=== PATIENT | female | born 1995 | race Caucasian/White ===

== ENCOUNTER 2020-05-29 11:52 | Inpatient (IN) | payer MEDICAID, OTHER ==
[2020-05-29] MEDS ORDERED: Water For Irrigation,Sterile 1,000 ML Container IRR PRN (13:07)
[2020-05-29] MEDS ORDERED: Methylergonovine 0.2 MG/1 ML Amp IM PRN (13:07)
[2020-05-29] MEDS ORDERED: Butorphanol 1 MG/ML SDV IVPUSH PRN (13:07)
[2020-05-29] MEDS ORDERED: Nalbuphine 10 MG/1 ML Vial IVPUSH PRN (13:07)
[2020-05-29] MEDS ORDERED: Lidocaine 1% 50 ML MDV INJECT PRN (13:07)
[2020-05-29] MEDS ORDERED: Misoprostol 200 MCG Tab PO PRN (13:07)
[2020-05-29] MEDS ORDERED: Carboprost Tromethamine 250 MCG/1 ML Amp IM PRN (13:07)
[2020-05-29] MEDS ORDERED: Sodium Chloride 0.9% 2.5 ML Syringe FLUSH PRN (13:07)
[2020-05-29] MEDS ORDERED: Tranexamic Acid 1,000 MG in Sodium Chloride 0.9% 100 ML IV PRN (13:07)
[2020-05-29] MEDS ORDERED: Sodium Chloride 0.9% 10 ML Syringe FLUSH PRN (13:07)
[2020-05-29] MEDS ORDERED: Sodium Chloride 0.9% 10 ML SDV IV PRN (13:07)
[2020-05-29] MEDS ORDERED: Oxytocin/0.9 % Sodium Chloride 30 UNIT/500 ML BAG IV SCH ×2 (13:15→14:30)
[2020-05-29] MEDS: Lactated Ringers 1,000 ML IV SCH ×2 (15:15→16:36)
[2020-05-29] MEDS ORDERED: Ropivacaine 0.2% PF 2 MG/ML 20 ML SDV ONE (16:34)
[2020-05-29] MEDS ORDERED: fentaNYL 100 MCG/2 ML SDV ONE (16:37)
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
[2020-05-29] MEDS ORDERED: Acetaminophen 500 MG Tab PO PRN ×2 (20:01)
[2020-05-29] MEDS ORDERED: oxyCODONE 5 MG Tab PO PRN (20:01)
[2020-05-29] MEDS ORDERED: Bisacodyl 10 MG Supp RECTAL PRN (20:01)
[2020-05-29] MEDS ORDERED: Docusate Sodium 100 MG Cap PO PRN (20:01)
[2020-05-29] MEDS ORDERED: Lanolin 100% Cream 7 GM Tube TOP PRN (20:01)
[2020-05-29] MEDS ORDERED: Benzocaine/Menthol 20%-0.5% Spray 78 GM Cannister TOP PRN (20:01)
[2020-05-29] MEDS ORDERED: Ibuprofen 400 MG Tab PO PRN (20:01)
[2020-05-29] MEDS ORDERED: Witch Hazel Medicated Pads 40/Jar TOP PRN (20:01)
--- NOTE | 2020-05-29 20:12 | PCM.OPNOTE ---
- General Post-Op/Procedure Note Date of Surgery/Procedure: 05/29/20 Operative Procedure(s): /1st MLL repaired Findings: Viable male APGARs 8, 9 weight 3300 gm. Spontaneous delivery intact with 3V cord. Pre Op Diagnosis: 37/2 week IUP. SROM Post-Op Diagnosis: Same Anesthesia Technique: Epidural Primary Surgeon: Zuleika Almeida EBL in mLs: 250 Complications: none known Condition: Stable Free Text/Narrative:: Dictation [id number]
--- NOTE | 2020-05-29 21:22 | OR ---
SURGEON: Zuleika Almeida M.D. DATE OF PROCEDURE: 05/29/2020 PREOPERATIVE DIAGNOSES: 1. A 37-2/7 weeks' intrauterine . 2. Spontaneous rupture of membranes. POSTOPERATIVE DIAGNOSES: 1. A 37-2/7 weeks' intrauterine . 2. Spontaneous rupture of membranes. PROCEDURE: Spontaneous vaginal delivery, first-degree midline laceration repaired. PRIMARY SURGEON: Zuleika Almeida MD ANESTHESIA: Epidural. ESTIMATED BLOOD LOSS: 250 mL. COMPLICATIONS: None known. FINDINGS: Viable male. score of 8 at one minute, 9 at five minutes. Weight of 3300 g. Spontaneous delivery, intact placenta, 3-vessel cord. DISPOSITION: to nursery, mom in LDRP. PROCEDURE DETAILS: Jorge is a 24-year-old, G2, P 0-1-0-1, at 37-2/7 weeks' gestational age, who presents today for leakage of fluid since approximately 10:30 a.m. Clear fluid had been noted at that time. On examination, she is found to be ruptured with positive AmniSure. heart tone was category 1. She is group B strep negative. On initial exam, she was found to be 2 cm, 50% effaced, minus 1 station. Therefore, she was observed with no evidence of active labor. Therefore, Pitocin augmentation was initiated. The patient responded nicely to this, became increasingly uncomfortable, underwent regional anesthesia in the form of epidural. Shortly after epidural, she was found to be 4 cm and then shortly after 7 p.m. was beginning to feel increasing pressure. She was found to be complete, 100% effaced, +3 station. I was called for delivery. Upon my arrival, the patient was placed in modified dorsal lithotomy position, was prepped and draped in the usual aseptic manner. She began pushing efforts, pushed readily. Was able to deliver infant's head atraumatically spontaneously, followed by anterior shoulder, posterior shoulder, and remainder of the body without difficulty. The infant's oropharynx and nares were bulb suctioned. was handed off to his mother with attending nursing staff at her side. After a delay, cord was clamped x2 and cut. Cord arterial, cord venous, cord blood sampling was obtained. Light pressure was applied while the placenta was delivered spontaneously intact. Vigorous fundal uterine massage was then applied while 30 units of Pitocin was delivered in 500 mL of IV fluid. Upon inspection of cervix, vaginal sidewall, and perineum, there was found to be a first-degree midline laceration. The patient did have quite a lot of sensation along the perineum at this time. Therefore, this area was prepped with approximately 5 mL of 1% lidocaine and then the laceration was repaired using 3- 0 Vicryl in usual fashion. Hemostasis appeared evident. Sponge, instrument, and needle count was correct. The patient remained in LDRP. Uterus firm. KATE / NATALIE /[id number]
[2020-05-30] MEDS: Ibuprofen 800 MG Tab PO PRN ×2 (09:30→15:33)
--- NOTE | 2020-05-30 11:40 | PCM.PNPP ---
- General Info Date of Service: 05/30/20 Functional Status: Reports: Pain Controlled, Tolerating Diet, Ambulating, Urinating - Review of Systems General: Reports: Fatigue. Denies: Fever, Weakness Pulmonary: Denies: Shortness of Breath Cardiovascular: Denies: Chest Pain, Palpitations, Lightheadedness Gastrointestinal: Denies: Abdominal Pain, Nausea, Vomiting Genitourinary: Denies: Flank Pain Musculoskeletal: Reports: No Symptoms Skin: Reports: No Symptoms Neurological: Reports: No Symptoms Psychiatric: Reports: No Symptoms - General Info Date of Service: 05/30/20 - Patient Data Vital Signs - Most Recent: Last Vital Signs Temp 36.4 C 05/30/20 09:35 Pulse 85 05/30/20 04:12 Resp 15 05/30/20 09:35 BP 124/75 05/30/20 09:35 Pulse Ox 97 05/30/20 09:35 Weight - Most Recent: 77.111 kg Lab Results - Last 24 Hours: Laboratory Results - last 24 hr 05/29/20 05/29/20 05/29/20 Range/Units 12:05 12:30 12:40 WBC (4.0-11.0) K/uL RBC (4.30-5.90) M/uL Hgb (12.0-16.0) g/dL Hct (36.0-46.0) % MCV (80.0-98.0) fL MCH (27.0-32.0) pg MCHC (31.0-37.0) g/dL RDW Std Deviation (28.0-62.0) fl RDW Coeff of Agapito (11.0-15.0) % Plt Count (150-400) K/uL MPV (7.40-12.00) fL Nucleated RBC % /100WBC Nucleated RBCs # K/uL Cord ABG pH (7.18-7.38) Cord ABG Base Excess (-10--2) Cord VBG pH (7.25-7.45) Cord VBG Base Excess (-10--2) Membrane Rupture POSITIVE Urine Opiates Screen NEGATIVE (NEGATIVE) Ur Oxycodone Screen NEGATIVE (NEGATIVE) Urine Methadone Screen NEGATIVE (NEGATIVE) Ur Barbiturates Screen NEGATIVE (NEGATIVE) Ur Phencyclidine Scrn NEGATIVE (NEGATIVE) Ur Amphetamine Screen NEGATIVE (NEGATIVE) U Methamphetamines Scrn NEGATIVE (NEGATIVE) U Benzodiazepines Scrn NEGATIVE (NEGATIVE) U Cocaine Metab Screen NEGATIVE (NEGATIVE) U Marijuana (THC) Screen NEGATIVE (NEGATIVE) SARS-CoV-2 RNA (YESSENIA) NEGATIVE (NEGATIVE) Blood Type Antibody Screen 05/29/20 05/29/20 05/29/20 Range/Units 13:50 13:54 19:42 WBC 15.72 H (4.0-11.0) K/uL RBC 3.55 L (4.30-5.90) M/uL Hgb 10.6 L (12.0-16.0) g/dL Hct 33.3 L (36.0-46.0) % MCV 93.8 (80.0-98.0) fL MCH 29.9 (27.0-32.0) pg MCHC 31.8 (31.0-37.0) g/dL RDW Std Deviation 45.0 (28.0-62.0) fl RDW Coeff of Agapito 13 (11.0-15.0) % Plt Count 486 H (150-400) K/uL MPV 9.50 (7.40-12.00) fL Nucleated RBC % 0.0 /100WBC Nucleated RBCs # 0 K/uL Cord ABG pH 7.266 (7.18-7.38) Cord ABG Base Excess -5 (-10--2) Cord VBG pH 7.281 (7.25-7.45) Cord VBG Base Excess -6 (-10--2) Membrane Rupture Urine Opiates Screen (NEGATIVE) Ur Oxycodone Screen (NEGATIVE) Urine Methadone Screen (NEGATIVE) Ur Barbiturates Screen (NEGATIVE) Ur Phencyclidine Scrn (NEGATIVE) Ur Amphetamine Screen (NEGATIVE) U Methamphetamines Scrn (NEGATIVE) U Benzodiazepines Scrn (NEGATIVE) U Cocaine Metab Screen (NEGATIVE) U Marijuana (THC) Screen (NEGATIVE) SARS-CoV-2 RNA (YESSENIA) (NEGATIVE) Blood Type A POSITIVE Antibody Screen NEGATIVE 05/30/20 Range/Units 05:17 WBC (4.0-11.0) K/uL RBC (4.30-5.90) M/uL Hgb 10.1 L (12.0-16.0) g/dL Hct 31.6 L (36.0-46.0) % MCV (80.0-98.0) fL MCH (27.0-32.0) pg MCHC (31.0-37.0) g/dL RDW Std Deviation (28.0-62.0) fl RDW Coeff of Agapito (11.0-15.0) % Plt Count (150-400) K/uL MPV (7.40-12.00) fL Nucleated RBC % /100WBC Nucleated RBCs # K/uL Cord ABG pH (7.18-7.38) Cord ABG Base Excess (-10--2) Cord VBG pH (7.25-7.45) Cord VBG Base Excess (-10--2) Membrane Rupture Urine Opiates Screen (NEGATIVE) Ur Oxycodone Screen (NEGATIVE) Urine Methadone Screen (NEGATIVE) Ur Barbiturates Screen (NEGATIVE) Ur Phencyclidine Scrn (NEGATIVE) Ur Amphetamine Screen (NEGATIVE) U Methamphetamines Scrn (NEGATIVE) U Benzodiazepines Scrn (NEGATIVE) U Cocaine Metab Screen (NEGATIVE) U Marijuana (THC) Screen (NEGATIVE) SARS-CoV-2 RNA (YESSENIA) (NEGATIVE) Blood Type Antibody Screen Med Orders - Current: Current Medications Acetaminophen (Tylenol Extra Strength) 500 mg PO Q4H PRN PRN Reason: Pain Acetaminophen (Tylenol Extra Strength) 1,000 mg PO Q4H PRN PRN Reason: Pain Benzocaine/Menthol (Dermoplast Pain Relief 20%-0.5% [place]) 78 gm TOP ASDIRECTED PRN PRN Reason: Perineal Comfort Measure Last Admin: 05/30/20 09:30 Dose: 1 spray Documented by: Bisacodyl (Dulcolax) 10 mg RECTAL ONETIME PRN PRN Reason: Constipation Carboprost Tromethamine (Hemabate Ds) 250 mcg IM ASDIRECTED PRN PRN Reason: Post Hemorrhage Docusate Sodium (Colace) 100 mg PO BID PRN PRN Reason: Constipation Emollient Ointment (Lansinoh Hpa) 0 gm TOP ASDIRECTED PRN PRN Reason: Sore Nipples Lactated Ringer's (Ringers, Lactated) 1,000 mls @ 150 mls/hr IV ASDIRECTED BAHMAN Last Infusion: 05/29/20 17:14 Dose: 150 mls/hr Documented by: Oxytocin/Sodium Chloride (Oxytocin 30 Unit/500 Ml-Ns) 30 unit in 500 mls @ 999 mls/hr IV TITRATE BAHMAN Tranexamic Acid 1,000 mg/ (Sodium Chloride) 110 mls @ 660 mls/hr IV ONETIME PRN PRN Reason: Bleeding Oxytocin/Sodium Chloride (Oxytocin 30 Unit/500 Ml-Ns) 30 unit in 500 mls @ 2 mls/hr IV TITRATE BAHMAN; Protocol Last Infusion: 05/29/20 18:14 Dose: 6 munits/min, 6 mls/hr Documented by: Ibuprofen (Motrin) 400 mg PO Q4H PRN PRN Reason: Pain Ibuprofen (Motrin) 800 mg PO Q6H PRN PRN Reason: Pain Last Admin: 05/30/20 09:30 Dose: 800 mg Documented by: Lidocaine HCl (Xylocaine 1%) 50 ml INJECT ONETIME PRN PRN Reason: Laceration repair Last Admin: 05/29/20 19:54 Dose: 50 ml Documented by: Methylergonovine Maleate (Methergine) 0.2 mg IM ASDIRECTED PRN PRN Reason: Post Hemorrhage Nalbuphine HCl (Nubain) 10 mg IVPUSH Q1H PRN PRN Reason: Pain (severe 7-10) Oxycodone HCl (Oxycodone) 5 mg PO Q2H PRN PRN Reason: Pain Sodium Chloride (Saline Flush) 10 ml FLUSH ASDIRECTED PRN PRN Reason: Keep Vein Open Sodium Chloride (Saline Flush) 2.5 ml FLUSH ASDIRECTED PRN PRN Reason: Keep Vein Open Sodium Chloride (Normal Saline) 10 ml IV ASDIRECTED PRN PRN Reason: IV Use Sterile Water (Sterile Water For Irrigation) 1,000 ml IRR ASDIRECTED PRN PRN Reason: delivery Last Admin: 05/29/20 20:14 Dose: 1,000 ml Documented by: Melissa Asher) 1 pad TOP ASDIRECTED PRN PRN Reason: comfort care Discontinued Medications Butorphanol Tartrate (Stadol) 1 mg IVPUSH Q1H PRN PRN Reason: Pain Fentanyl (Sublimaze) Confirm Administered Dose 100 mcg .ROUTE .STK-MED ONE Stop: 05/29/20 16:38 Misoprostol (Cytotec) 200 mcg PO ONETIME PRN PRN Reason: Post Hemorrhage Ropivacaine (Naropin 0.2%) Confirm Administered Dose 20 ml .ROUTE .Flipter-Corral Labs ONE Stop: 05/29/20 16:35 - Interaction Support Person: Mother - Recovery Exam Fundal Tone: Firm Fundal Level: At Umbilicus Fundal Placement: Midline Lochia Amount: Scant Lochia Color: Rubra/Red Perineum Description: Intact, Minimal Bruising/Swelling Episiotomy/Laceration: Approximated Bladder Status: Voiding - Exam General: Alert, Oriented Lungs: Normal Respiratory Effort Cardiovascular: Regular Rate, Regular Rhythm GI/Abdominal Exam: Normal Bowel Sounds, Soft Extremities: Pedal Edema (trace). No: Shawn's Sign Skin: Warm, Dry, Intact Neurological: No New Focal Deficit Psy/Mental Status: Alert, Normal Affect, Normal Mood - Problem List & Annotations (1) Vaginal delivery SNOMED Code(s): 603385129 Code(s): O80 - ENCOUNTER FOR FULL-TERM UNCOMPLICATED DELIVERY Status: Acute Current Visit: Yes - Problem List Review Problem List Initiated/Reviewed/Updated: Yes - My Orders Last 24 Hours: My Active Orders 05/29/20 11:56 Patient Status [ADT] Routine Resuscitation Status Routine 05/29/20 13:07 Patient Status [ADT] Routine Notify Provider [RC] PRN Carboprost Tromethamine [Hemabate DS] 250 mcg IM ASDIRECTED PRN Lidocaine 1% [Xylocaine 1%] 50 ml INJECT ONETIME PRN Methylergonovine [Methergine] 0.2 mg IM ASDIRECTED PRN Nalbuphine [Nubain] 10 mg IVPUSH Q1H PRN Sodium Chloride 0.9% [Normal Saline] 10 ml IV ASDIRECTED PRN Sodium Chloride 0.9% [Saline Flush] 10 ml FLUSH ASDIRECTED PRN Sodium Chloride 0.9% [Saline Flush] 2.5 ml FLUSH ASDIRECTED PRN Tranexamic Acid [Cyklokapron] 1,000 mg Sodium Chloride 0.9% [Normal Saline] 100 ml IV ONETIME Water For Irrigation,Sterile [Sterile Water for Irrigation] 1,000 ml IRR ASDIRECTED PRN Peripheral IV Insertion Adult [OM.PC] Routine 05/29/20 13:15 Lactated Ringers [Ringers, Lactated] 1,000 ml IV ASDIRECTED Oxytocin/0.9 % Sodium Chloride [Oxytocin 30 Unit/500 ML-NS] 30 unit in 500 ml IV TITRATE 05/29/20 13:50 RPR (SYPHILIS SERO) W/ RFLX [REF] Routine 05/29/20 14:30 Oxytocin/0.9 % Sodium Chloride [Oxytocin 30 Unit/500 ML-NS] 30 unit in 500 ml IV TITRATE 05/29/20 Dinner Regular Diet [DIET] 05/29/20 20:01 Patient Status [ADT] Routine May Shower [RC] ASDIRECTED Notify Provider Vital Signs [RC] ASDIRECTED Up ad Maggie [RC] ASDIRECTED Vital Signs [RC] PER UNIT ROUTINE Acetaminophen [Tylenol Extra Strength] 1,000 mg PO Q4H PRN Acetaminophen [Tylenol Extra Strength] 500 mg PO Q4H PRN Benzocaine/Menthol [Dermoplast Pain Relief 20%-0.5% [place]] 78 gm TOP ASDIRECTED PRN Docusate Sodium [Colace] 100 mg PO BID PRN Ibuprofen [Motrin] 400 mg PO Q4H PRN Ibuprofen [Motrin] 800 mg PO Q6H PRN Lanolin [Lansinoh HPA] See Dose Instructions TOP ASDIRECTED PRN bisacodyL [Dulcolax] 10 mg RECTAL ONETIME PRN oxyCODONE 5 mg PO Q2H PRN witch [place]o [Tucks] 1 pad TOP ASDIRECTED PRN Assess Lochia [WOMSER] Per Unit Routine Assess Uterine Involution [WOMSER] Per Unit Routine Peripheral IV Discontinue [OM.PC] Routine 05/29/20 20:02 Ice Therapy [OM.PC] Per Unit Routine Perineal Care [OM.PC] Per Unit Routine Sitz Bath [OM.PC] Per Unit Routine 05/29/20 20:03 Cooling Warming Measures [RC] ASDIRECTED 05/30/20 11:37 Ready for Discharge [RC] PER UNIT ROUTINE - Assessment Assessment:: PPD 1 status post - Plan Plan:: Patient is doing well overal. VS and labs reassuring. is going well. She would like to go home later today. Discharge instructions reviewed. Follow up at [facility] 4 weeks. Discharge this evening.
--- NOTE | 2020-05-30 12:54 | PCM48HPAN ---
Post Anesthesia Note - EVALUATION WITHIN 48HRS OF ANESTHETIC Vital Signs in Normal Range: Yes Patient Participated in Evaluation: Yes Respiratory Function Stable: Yes Airway Patent: Yes Cardiovascular Function Stable: Yes Hydration Status Stable: Yes Pain Control Satisfactory: Yes Nausea and Vomiting Control Satisfactory: Yes Mental Status Recovered: Yes Vital Signs: Last Vital Signs Temp 36.4 C 05/30/20 09:35 Pulse 85 05/30/20 04:12 Resp 15 05/30/20 09:35 BP 124/75 05/30/20 09:35 Pulse Ox 97 05/30/20 09:35 - COMMENTS/OBSERVATIONS Free Text/Narrative:: Doing well. No problems noted.
[2020-05-30 19:23] VITALS: BP 114/64; PULSE 92
== END 2020-05-30 21:57 | disposition home or self-care (01) | DRG 807 ==
LOC: MW.OB 11:52 → MW.OBCHECK 11:52 → MW.OB 13:07 → MW.OBCHECK 13:07 → OBSVTOIN 19:42 → MW.OB 22:41
PROVIDERS: ADMIT Obstetrics & Gynecology; ATTEND Obstetrics & Gynecology
PROC: 10E0XZZ Delivery of Products of Conception, External Approach (ICD-10-PCS; principal; 2020-05-29)
PROC: 0HQ9XZZ Repair Perineum Skin, External Approach (ICD-10-PCS; 2020-05-29)
PROC: 3E0R3BZ Introduction of Anesthetic Agent into Spinal Canal, Percutaneous Approach (ICD-10-PCS; 2020-05-29)
PROC: 00HU33Z Insertion of Infusion Device into Spinal Canal, Percutaneous Approach (ICD-10-PCS; 2020-05-29)
DX: O70.0 First degree perineal laceration during delivery (principal); Z37.0 Single live birth; Z3A.37 37 weeks gestation of pregnancy; Z20.828 Contact with and (suspected) exposure to other viral communicable diseases
CPT/HCPCS: 36415; 51702; 59025; 59409; 80305-QW; 82803; 84112; 85014; 85018; 85027; 86592; 86850; 86900; 86901; A9270-GY; J2001; J2590; J2795; J3010; J7120; U0002

== ENCOUNTER 2021-04-21 11:45 | Emergency (ER) | payer MEDICAID, OTHER ==
[2021-04-21] MEDS ORDERED: Ketorolac 30 MG/ML SDV IVPUSH ONE (12:38)
[2021-04-21] MEDS ORDERED: Ondansetron 4 MG/2 ML SDV IVPUSH ONE (12:38)
[2021-04-21 12:40] LABS: BLOOD UREA NITROGEN,BUN 4 mg/dL (7.0-18.0); CARBON DIOXIDE,CO2 23.6 mmol/L (21.0-32.0); CHLORIDE,CL 104 mmol/L (98-107); GLUCOSE RANDOM 107 mg/dL (74-106); POTASSIUM,K 3.7 mmol/L (3.5-5.1); SODIUM,NA 141 mmol/L (136-145)
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
[2021-04-21] MEDS ORDERED: Iopamidol 755 MG/ML 500 ML Multipack Bottle IVPUSH STA (13:03)
--- NOTE | 2021-04-21 13:55 | CT ---
Indication: Right lower quadrant pain, concern for appendicitis Technique: Contrast enhanced axial CT imaging through the abdomen and pelvis. 100 mL Isovue 370 contrast agent was administered intravenously. Sagittal and coronal reconstructions are provided. Comparison: None Findings: No abnormalities are demonstrated relating to the liver, gallbladder, spleen, pancreas, adrenal glands, and kidneys. The portal vein is patent. The abdominal aorta is normal in caliber. There is no abdominal or pelvic lymphadenopathy. The stomach and duodenum are unremarkable. There is no small bowel wall thickening or abnormal distention. The appendix is noninflamed. There is no colonic wall thickening or mesenteric edema. Intrauterine device is noted. The right short arm of the IUD is imbedded in the myometrium, with its distal end protruding at least 5 mm past the serosal margin into the vesicouterine space. There is no appreciable pelvic free fluid. The ovaries and urinary bladder are grossly unremarkable. The osseous structures are unremarkable. The included lung bases are clear. Impression: 1. Malpositioned IUD with the right short arm imbedded into the myometrium and protruding past the serosa into the vesicouterine space. 2. Normal appendix. 3. Findings were called to WILLIAN Leiva. Please note that all CT scans at this facility use dose modulation, iterative reconstruction, and/or weight-based dosing when appropriate to reduce radiation dose to as low as reasonably achievable. Dictated by Polly Dominguez MD @ 04/21/2021 1:54:19 PM (Electronically Signed)
[2021-04-21] MEDS ORDERED: Acetaminophen/HYDROcodone 325-5 MG Tab PO ONE (15:11)
[2021-04-21 15:18] VITALS: BP 110/74; PULSE 89
== END 2021-04-21 15:23 | disposition home or self-care (01) ==
LOC: MW.ED 11:45
DX: T83.32XA Displacement of intrauterine contraceptive device, initial encounter (principal); Z20.822 Contact with and (suspected) exposure to COVID-19
CPT/HCPCS: 36415; 74177; 80053; 81001; 81025; 85025; 87086; 87635; 96374; 96375; 99284; A9270; J1885; J2405; Q9967; U0002

== ENCOUNTER 2024-02-03 15:39 | Emergency (ER) | payer MEDICAID, OTHER ==
[2024-02-03 16:22] LABS: BASOPHILS ABSOLUTE AUTO 0.03 K/uL (0.00-0.20); BASOPHILS PERCENT AUTO 0.3 % (0.0-1.0); HEMATOCRIT 34.1 % (37.0-47.0); HEMOGLOBIN 11.8 g/dL (12.0-16.0); IMMATURE GRAN ABSOLUTE AUTO 0.04 K/uL (0.00-0.05); IMMATURE GRAN PERCENT AUTO 0.4 % (0.0-0.4); LYMPHOCYTES ABSOLUTE AUTO 2.83 K/uL (1.00-4.80); LYMPHOCYTES PERCENT AUTO 26.9 % (24.0-44.0); MEAN CORPUSCULAR HEMOGLOBIN 31.2 pg (28.0-32.0); MEAN CORPUSCULAR HGB CONC 34.6 g/dL (32.0-36.0); MEAN CORPUSCULAR VOLUME 90.2 fL (83.0-99.0); MEAN PLATELET VOLUME 8.8 fL (9.4-12.3); MONOCYTES ABSOLUTE AUTO 0.62 K/uL (0.00-0.80); MONOCYTES PERCENT AUTO 5.9 % (0.0-8.0); NEUTROPHILS ABSOLUTE AUTO 6.89 K/uL (1.80-7.70); NEUTROPHILS PERCENT AUTO 65.5 % (41.0-71.0); PLATELET COUNT,PLT 358 K/uL (150-400); RED BLOOD CELL COUNT 3.78 M/uL (4.10-5.30); WHITE BLOOD CELL COUNT,WBC 10.51 K/uL (3.9-11.3)
[2024-02-03 16:42] LABS: BILIRUBIN,URINE NEGATIVE (NEGATIVE); COLOR,URINE YELLOW; GLUCOSE,URINE NEGATIVE (NEGATIVE); KETONES,URINE NEGATIVE (NEGATIVE); LEUKOCYTE ESTERASE,URINE TRACE (NEGATIVE); NITRITE,URINE POSITIVE (NEGATIVE); OCCULT BLOOD,URINE NEGATIVE (NEGATIVE); PH,URINE 6.5 (5.0-8.0); PROTEIN,URINE NEGATIVE (NEGATIVE); UROBILINOGEN,URINE 0.2 EU/dL (<2.0)
[2024-02-03 16:46] LABS: APPEARANCE,URINE SLT CLOUDY
[2024-02-03 16:50] LABS: A/G RATIO 1.1 (0.9-1.6); ALBUMIN 3.6 g/dL (3.4-5.0); BILIRUBIN TOTAL 0.4 mg/dL (0.2-1.0); CALCIUM 9.2 mg/dL (8.5-10.1); CARBON DIOXIDE,CO2 25.8 mmol/L (21.0-32.0); CREATININE 0.6 mg/dL (0.6-1.0); EST CRCL DRUG DOSING (CG) 105.34 mL/min; MAGNESIUM 1.6 mg/dL (1.8-2.4); POTASSIUM,K 3.4 mmol/L (3.5-5.1); PROTEIN TOTAL,TP 6.8 g/dL (6.4-8.2)
[2024-02-03] MEDS: Sodium Chloride 0.9% 1,000 ML IV ONE (16:50)
[2024-02-03] MEDS: Ketorolac 30 MG/ML SDV IVPUSH ONE (16:51)
[2024-02-03] MEDS: Acetaminophen 500 MG Tab PO ONE (16:51)
[2024-02-03 16:57] VITALS: BP 123/65; PULSE 92
[2024-02-03 16:58] LABS: EPITHELIAL CELLS,URINE FEW (NONE-FEW); RBC,URINE 0-1 (0-2/HPF)
[2024-02-03 16:59] LABS: BACTERIA,URINE MANY (NEGATIVE)
[2024-02-03] MEDS: Acetaminophen 500 MG Tab ONE (16:59)
[2024-02-03 17:36] LABS: CORONAVIRUS COVID-19 NAA NEGATIVE (NEGATIVE); INFLUENZA A NAA NEGATIVE (NEGATIVE); INFLUENZA B NAA NEGATIVE (NEGATIVE); RESPIRATORY SYNCYTIAL VIR NAA NEGATIVE (NEGATIVE)
[2024-02-03] MEDS: Cephalexin 500 MG Cap PO ONE (18:54)
== END 2024-02-03 19:02 | disposition left against medical advice (07) ==
LOC: MW.ED 15:39
DX: O23.41 Unspecified infection of urinary tract in pregnancy, first trimester (principal); Z3A.01 Less than 8 weeks gestation of pregnancy; Z75.8 Other problems related to medical facilities and other health care
CPT/HCPCS: 0241U; 36415; 76817; 80053; 81001; 81025; 83735; 84702; 85025; 87086; 96360; 99284; A9270; J7030

== ENCOUNTER 2024-04-14 19:56 | Emergency (ER) | payer MEDICAID ==
[2024-04-14] MEDS: Ketorolac 30 MG/ML SDV IM ONE (21:32)
[2024-04-14] MEDS: Lidocaine 2% Viscous Solution 15 ML UD PO ONE (21:32)
[2024-04-14] MEDS: Benzocaine 20% Topical Spray UD MUCMEM ONE (21:32)
[2024-04-14] MEDS: Acetaminophen 500 MG Tab PO ONE (21:33)
[2024-04-14 21:42] VITALS: BP 129/92; PULSE 82
== END 2024-04-14 21:38 | disposition home or self-care (01) ==
LOC: MW.ED 19:56
DX: K02.9 Dental caries, unspecified (principal); K04.7 Periapical abscess without sinus
CPT/HCPCS: 96372; 99282; A9270; J1885; 99283